=== PATIENT | male | born 1970 | race Caucasian/White ===

== ENCOUNTER 2024-08-03 15:22 | Emergency (ER) | payer SELFPAY ==
[~2024-08-03] VITALS: Ht 193 cm; Wt 125.0 kg
[2024-08-03 15:30] VITALS: BP 155/877; TEMP 98.3
[2024-08-03] MEDS ORDERED: Ibuprofen 600 MG TAB PO ONE (15:45)
[2024-08-03 17:27] VITALS: PULSE 71
[2024-08-03] MEDS ORDERED: Home HYDROcodone/Acetaminophen 5/325 MG #4 TABS/PACK PO ONE (17:30)
== END 2024-08-03 17:28 | disposition home or self-care (01) ==
LOC: COL.ER 15:22
DX: S52.502A Unspecified fracture of the lower end of left radius, initial encounter for closed fracture (principal); S62.502A Fracture of unspecified phalanx of left thumb, initial encounter for closed fracture; M54.41 Lumbago with sciatica, right side; W11.XXXA Fall on and from ladder, initial encounter; Y92.89 Other specified places as the place of occurrence of the external cause; Y99.0 Civilian activity done for income or pay